=== PATIENT | male | born 1930 | race Caucasian/White ===

== ENCOUNTER 2017-05-13 15:38 | Emergency (ER) | payer OTHER ==
[2017-05-13 15:51] VITALS: BP 118/81
[2017-05-13] MEDS ORDERED: DIPHTH,PERTUSS(ACELL),TET VAC 0.5 ML VIAL IM ONE ×2 (16:24→16:27)
--- NOTE | 2017-05-13 16:24 | ERNOTE ---
Upper Extremity HPI - Narrative Date of Service: 05/13/17 - General Extremities Pain Location: 3rd finger: right Time Seen by Provider: 05/13/17 16:19 Source: patient, family, RN notes reviewed Exam Limitations: no limitations - Immun/Allergies/Home Medications Allergies/Adverse Reactions: Allergies Allergy/AdvReac Type Severity Reaction Status Date / Time No Known Allergies Allergy Unverified 05/13/17 15:51 Home Medications: HOME MEDICATIONS Levothyroxine Sodium 05/13/17 [Last Taken Unknown] Warfarin Sodium [Coumadin] 2 mg PO DAILY 05/13/17 [Last Taken Unknown] Warfarin Sodium [Coumadin] 3 mg PO DAILY 05/13/17 [Last Taken Unknown] - History of Present Illness Narrative: 86 y/o male brought to the ED by his daughter for lacerations to his right middle finger. He was working on a lawnmower and cut himself on a fly wheel. He is unsure of when he last had a tetanus vaccination. Date (Duration): 05/13/17 Occurred: just prior to arrival Location of Incident: home Severity: mild Associated Symptoms: Denies: tingling, weakness, numbness distally Other Injuries: Reports: none Prior Treament: Denies: recently seen Review of Systems - Review of Systems Constitutional: Absent: recent illness, fever EYE: Present: no symptoms reported ENT: Present: no symptoms reported Respiratory: Present: no symptoms reported Cardiology: Present: no symptoms reported Gastrointestinal/Abdominal: Present: no symptoms reported Genitourinary: Present: no symptoms reported Musculoskeletal: Absent: joint pain, joint swelling Skin: Absent: rash, lesions, lumps Neurological: Absent: weakness, numbness, tingling Endocrine: Present: no symptoms reported Hematologic/Lymphatic: Present: easy bruising, easy bleeding Psych: Present: no symptoms reported - Patient's Past Medical History Patient History - Medical: No pertinent hx Patient History - Cardiac/Respiratory: CVA/Stroke, Myocardial Infarction Patient History - Surgical Procedures: Cardiac stent, Pacemaker Patient History - Other: None - Social History Living Situations: home Psych History: No pertinent hx Alcohol Use: none Drug Use: none - Immunizations Immunizations Up to Date: No Physical Exam - Physical Exam General Appearance: Present: wd/wn, alert, no apparent distress Respiratory: Present: no respiratory distress, no accessory muscle use Extremity Exam: Present: normal range of motion, no edema Neurological Exam: Present: alert, oriented, normal mood/affect, no motor/ sensory deficits Skin Exam: Present: normal color, warm/dry, other - small lacerations to right middle finger, distal aspect ED Progress - Vital Signs Patient's Vital Signs:: I have reviewed the patient's vital signs. Vital Signs: Vital Signs 05/13/17 15:44 Temperature 36.9 C Pulse Rate 72 Respiratory 12 Rate Blood Pressure 118/81 O2 Sat by Pulse 95 Oximetry - Progress/Reassessment Chief Complaint: Laceration Progress:: Improved Procedures Right Distal Dorsal Hand 3rd Digit Anesthesia: 1% Lidocaine Length of Repair/Wound (cm): 1 Wound's Depth/Shape: into subcutaneous, linear Wound Explored: clean, to base, in bloodless field, no foreign body Wound Intervention: irrigated w/saline Distal NVT: neuro/vasc intact, no tendon injury Wound Repaired With: sutures Suture Size/Type: nylon Number of Sutures: 1 Layer Closure: Simple Wound Dressing: sterile dressing applied Complications: Pt jing procedure well Right Distal Hand 3rd Digit Anesthesia: 1% Lidocaine Length of Repair/Wound (cm): 2 Wound's Depth/Shape: into subcutaneous, irregular Wound Explored: clean, to base, in bloodless field, no foreign body Wound Intervention: irrigated w/saline Wound Repaired With: sutures Suture Size/Type: 5-0, nylon Layer Closure: Simple Wound Dressing: sterile dressing applied Complications: Pt jing procedure well Departure Clinical Impression: Finger laceration Qualifiers: Encounter type: initial encounter Finger: middle finger Damage to nail status: without damage Foreign body presence: without foreign body Laterality: right Qualified Code(s): S61.212A - Laceration without foreign body of right middle finger without damage to nail, initial encounter - Departure Disposition: Home Follow Up Needed Condition: Good Instructions: Sutured Wound Care, [id number] Additional Instructions: Keep dressing dry and in place for 24 hours Ok to then wash wound gently with soap and water but do not soak in water for prolonged periods of time Apply antibiotic ointment twice a day and band aid as needed Have sutures removed in 7 days
[2017-05-13] MEDS ORDERED: LIDOCAINE HCL 20 ML VIAL ONE (16:26)
== END 2017-05-13 17:03 | disposition home or self-care (01) ==
LOC: ER 15:38
PROC: 0JQJ0ZZ Repair Right Hand Subcutaneous Tissue and Fascia, Open Approach (ICD-10-PCS; principal; 2017-05-13)
DX: S61.212A Laceration without foreign body of right middle finger without damage to nail, initial encounter (principal); W28.XXXA Contact with powered lawn mower, initial encounter; Y93.89 Activity, other specified; Y92.008 Other place in unspecified non-institutional (private) residence as the place of occurrence of the external cause; Z95.0 Presence of cardiac pacemaker; Z95.5 Presence of coronary angioplasty implant and graft; I25.2 Old myocardial infarction; Z23 Encounter for immunization

== ENCOUNTER 2017-05-20 08:45 | Emergency (ER) | payer MEDICARE, OTHER ==
[2017-05-20 08:45] VITALS: BP 118/81
== END 2017-05-20 09:04 | disposition home or self-care (01) ==
LOC: ER 08:45
DX: Z48.02 Encounter for removal of sutures (principal)